=== PATIENT | male | born 1950 | race Caucasian/White ===

== ENCOUNTER 2017-04-01 13:06 | Outpatient (CLI) | payer MEDICARE, OTHER ==
[2017-04-01 17:43] LABS: RHEUMATOID FACTOR NEGATIVE (Negative)
[2017-04-01 17:54] LABS: BUN - BLOOD UREA NITROGEN 23 mg/dL (6-20); CALCIUM 9.1 mg/dL (8.5-10.3); CARBON DIOXIDE - CO2 27 mmol/L (21-32); CHLORIDE 101 mmol/L (101-111); CREATININE 0.9 mg/dL (0.6-1.2); GFR - MDRD 84 (>89); GLUCOSE 87 mg/dL (70-100); SODIUM 134 mmol/L (135-145); URIC ACID 4.5 mg/dL (2.6-7.2)
[2017-04-01 17:58] LABS: CRP - C-REACTIVE PROTEIN < 1.0 mg/dL (0-1.0)
[2017-04-01 17:59] LABS: EOSINOPHILS % (AUTO) 2.1 %
[2017-04-01 21:21] LABS: ABNORMAL LYMPHS % (MANUAL) 0 %; BAND NEUTROPHILS % (MANUAL) 0 %
[2017-04-01 21:24] LABS: BASOPHILS # (MANUAL) 0.1 10^3/uL (0-0.1); BASOPHILS % (MANUAL) 2 %; EOSINOPHILS # (MANUAL) 0.1 10^3/uL (0-0.7); LYMPHOCYTES # (MANUAL) 0.2 10^3/uL (1.5-3.5); LYMPHOCYTES % (MANUAL) 7 %; MONOCYTES # (MANUAL) 0.5 10^3/uL (0.0-1.0); NEUTROPHILS # (MANUAL) 1.9 10^3/uL (1.5-6.6); NEUTROPHILS % (MANUAL) 69 %
[2017-04-01 21:29] LABS: HGB - HEMOGLOBIN 13.8 g/dL (14.0-18.0); LYMPHOCYTES % (AUTO) 8.1 %; MEAN CORPUSCULAR HEMOGLOBIN 31.6 pg (27.0-31.0); MEAN CORPUSCULAR HGB CONC 33.6 g/dL (32.0-36.0); MEAN CORPUSCULAR VOLUME 94.1 fL (80.0-94.0); MONOCYTES % (AUTO) 20.1 %; NEUTROPHILS % (AUTO) 68.7 %; PLT - PLATELET COUNT 240 10^3/uL (130-450); RED BLOOD COUNT 4.38 10^6/uL (4.70-6.10); RED CELL DISTRIBUTION WIDTH 13.8 % (12.0-15.0); WHITE BLOOD COUNT 3.2 x10^3/uL (4.8-10.8)
[2017-04-01 21:34] LABS: RBC MORPHOLOGY (MULTIPLE) 1+ AGGLUTINATED RBC (NORMAL)
== END 2017-04-01 13:07 | disposition home or self-care (01) ==
LOC: LAB.F 13:06
PROVIDERS: ATTEND Physician Assistant
DX: L40.9 Psoriasis, unspecified (principal); M25.469 Effusion, unspecified knee; R22.40 Localized swelling, mass and lump, unspecified lower limb
CPT/HCPCS: 36415; 80048; 84550; 85025; 85651; 86038; 86140; 86430

== ENCOUNTER 2017-04-09 13:32 | Outpatient (CLI) | payer MEDICARE, OTHER ==
--- NOTE | 2017-04-09 18:16 | XRAY Report ---
DATE OF SERVICE: 04/09/2017 THREE VIEW RIGHT KNEE: 04/09/2017 CLINICAL INDICATION: Swelling. FINDINGS: Frontal and lateral and sunrise views of the right knee demonstrate no evidence of fracture or dislocation. The joint spaces are preserved. There is pretibial soft tissue swelling. No foreign body is seen in the soft tissues. IMPRESSION: PRETIBIAL SOFT TISSUE SWELLING, BUT NO EVIDENCE OF FRACTURE OR FOREIGN BODY. TD: 04/09/2017 18:58
--- NOTE | 2017-04-09 18:17 | XRAY Report ---
DATE OF SERVICE: 04/09/2017 THREE VIEW BILATERAL ANKLES: 04/09/2017 CLINICAL INDICATION: Swelling. FINDINGS: AP, lateral, and oblique views of the bilateral ankles demonstrate no evidence of fracture or dislocation. The joint spaces are preserved. No effusion is present. IMPRESSION: NORMAL BILATERAL ANKLES. TD: 04/09/2017 19:00
== END 2017-04-09 13:33 | disposition home or self-care (01) ==
LOC: DI.S 13:32
PROVIDERS: ATTEND Physician Assistant
DX: M25.461 Effusion, right knee (principal); R22.40 Localized swelling, mass and lump, unspecified lower limb

== ENCOUNTER 2021-06-19 14:51 | Outpatient (CLI) | payer MEDICARE, OTHER ==
--- NOTE | 2021-06-19 15:59 | Ultrasound Report ---
PROCEDURE: Duplex Ext Veins Right INDICATIONS: SWELLING OF RIGHT LOWER LIMB TECHNIQUE: Real-time imaging, as well as color and pulse Doppler interrogation, were performed of the lower extr emity deep veins from the inguinal ligament to the popliteal fossa. COMPARISON: None. FINDINGS: The deep veins are normally compressible, and free of intraluminal thrombus. Color and pu lse Doppler demonstrate normal phasic intraluminal flow. There is normal augmentation response to di stal compression maneuver. Hypoechoic lesions with internal echoes are seen, measuring up to 23.3 cm, which may reflect hematoma s. A 6.4 x 1.9 cm hypoechoic lesion is seen in the popliteal fossa, likely reflecting a Goldberg's cyst. IMPRESSION: 1. No evidence of DVT. Reviewed by: David Guardado MD on 06/19/2021 3:58 PM PDT Approved by: David Guardado MD on 06/19/2021 3:58 PM PDT Station ID: [id number]
== END 2021-06-19 14:52 | disposition home or self-care (01) ==
LOC: DI 14:51
PROVIDERS: ATTEND Nurse Practitioner Family
DX: R22.41 Localized swelling, mass and lump, right lower limb (principal)